=== PATIENT | female | born 2000 | race Caucasian/White ===

== ENCOUNTER → 2020-07-04 11:25 | Outpatient (CLI) | payer OTHER, SELFPAY ==
[2020-07-04] MEDS: COVID-19 VACC #1, MRNA(MOD) 100 MCG/0.5 ML VIAL IM (11:35)
== END ==
PROVIDERS: Visit Provider Internal Medicine
DX: Z23 Encounter for immunization (principal)
CPT/HCPCS: 0011A; 91301

== ENCOUNTER → 2020-08-01 13:15 | Outpatient (CLI) | payer OTHER, SELFPAY ==
[2020-08-01] MEDS: COVID-19 VACC #2, MRNA(MOD) 100 MCG/0.5 ML VIAL IM (13:27)
== END ==
PROVIDERS: Visit Provider Internal Medicine
DX: Z23 Encounter for immunization (principal)
CPT/HCPCS: 0012A; 91301